=== PATIENT | male | born 1980 | race Caucasian/White ===

== ENCOUNTER 2024-05-28 12:29 | Emergency (ER) | payer MEDICAID, SELFPAY ==
[2024-05-28 12:37] VITALS: BP 134/86; PULSE 77; RESP 20; TEMP 37.1; O2SAT 97; BMI 22.6
--- NOTE | 2024-05-28 12:39 | ED_ITS ---
HPI - General Adult General Chief complaint: Abdominal Pain Stated complaint: black stool, abd pain Time Seen by Provider: 05/28/24 16:46 Source: patient Limitations: no limitations History of Present Illness ED Provider: Kath Guaman PA-C HPI narrative: 43-year-old male who is otherwise healthy presents with nausea vomiting x5 days. Associated cough and cold symptoms consisting of nasal congestion, dry cough, chills, subjective fevers at home. Patient began to have nausea vomiting within the past day, when he had a bowel movement today he noticed it to be black. He only had 1 episode. Patient states he is having ?tightness? in the epigastric region. Denies use of Pepto-Bismol. Denies sick contacts with the same symptoms. Related Data Previous Rx's ?Medication ?Instructions ?Recorded ondansetron HCl 4 mg tablet 4 mg PO Q8H PRN nausea and 05/28/24 vomiting #10 tabs sucralfate 100 mg/mL oral 10 ml PO QID PRN indigestion #300 05/28/24 suspension (Carafate) mL Allergies Allergy/AdvReac Type Severity Reaction Status Date / Time naproxen [NAPROXEN] Allergy Mild HIVES Verified 05/28/24 12:39 Review of Systems 2 Review of Systems: Yes all other systems are reviewed and are negative Constitutional: Constitutional: Reports chills, Reports fever(s) and Reports malaise ENT: Reports nasal congestion and Reports nasal discharge Cardiovascular: Cardiovascular: Denies chest pain and Denies dyspnea on exertion Respiratory: Respiratory: Reports cough and Denies dyspnea on exertion Gastrointestinal: Gastrointestinal: Reports abdominal pain, Reports melena, Denies diarrhea, Reports nausea and Reports vomiting PMFSH Past Medical History Attestation statement: The following information was validated with the patient. Social History Social History Smoked in Last 30 Days: Yes Use of substances other than those prescribed or required for medical reasons: Yes Substance Use Type: Marijuana Advance Directives: No Advance Directives Information Provided: Yes Physical Exam ED Vital Signs: Vital Signs - 24 hr 05/28/24 12:37 05/28/24 17:08 Temperature 98.8 F 98.7 F Pulse Rate 77 75 Respiratory Rate 20 16 Blood Pressure 134/86 135/80 Pulse Oximetry 97 100 Oxygen Delivery Method Room Air Room Air BMI result Body Mass Index 22.6 Const Other: Alert, overall well in appearance Orientation/consciousness: patient oriented x3 HENMT Other: Nasal congestion, rhinorrhea Resp Effort & Inspection: normal respiratory effort Cardio Other: Normal peripheral perfusion GI Other: Abdomen is soft, nontender nondistended Skin Other: Warm dry no rash Neuro General: patient oriented x3, no focal motor deficits and CN's II-XI intact bilaterally Psych Other: Calm cooperative Course Course Course Narrative: This is a rapid medical exam performed by Zulema Riddle NP: Additional HPI, ROS, PE not included below will be deferred to primary provider. Patient is a 43-year-old male presenting to the ED with complaint of black stool, periumbilical abdominal pain. States was seen at [facility] recently for similar symptoms but left due to wait time. Plan: labs, UA, viral swabs Reevaluation(s) Reevaluation #1: he feels remarkably better after the meds, he is eating drinking eager for discharge Time: 19:19 Medications Administered Discontinued Medications Generic Name Dose Route Start Last Admin Trade Name Freq PRN Reason Stop Dose Admin Famotidine 20 mg 05/28/24 17:21 05/28/24 17:38 Famotidine/Pf 20 Mg/2 Ml Vial IVPUSH 05/28/24 17:22 20 mg ONCE ONE Administration Sodium Chloride 1,000 mls @ 999 mls/hr 05/28/24 17:30 05/28/24 17:38 Ns IV 05/28/24 18:30 999 mls/hr .Q1H1M SAM Administration Ondansetron HCl 4 mg 05/28/24 17:21 05/28/24 17:38 Ondansetron Hcl 4 Mg/2 Ml Vial IVPUSH 05/28/24 17:22 4 mg ONCE ONE Administration Sucralfate 1 gm 05/28/24 17:21 05/28/24 17:38 Sucralfate Oral Suspension 1 Gm/10 Ml Oral.Susp PO 05/28/24 17:22 1 gm ONCE ONE Administration Medical Decision Making Medical Decision Making [facility] Narrative: 43-year-old male who is otherwise healthy presents with nausea vomiting x5 days. Associated cough and cold symptoms consisting of nasal congestion, dry cough, chills, subjective fevers at home. Patient began to have nausea vomiting within the past day, when he had a bowel movement today he noticed it to be black. He only had 1 episode. Patient states he is having ?tightness? in the epigastric region. Denies use of Pepto-Bismol. Denies sick contacts with the same symptoms. No chronic issues History: Per patient I have considered the following differential diagnoses: Upper GI bleed, lower GI bleed, gastritis, viral syndrome, Plan: Sounds as if patient has poorly controlled GERD, he only had 1 episode of dark stool, no active melena, he has not had any bowel movements since arrival. His abdominal exam is benign, nothing to suggest perforated viscus. He has no peritoneal signs. He can follow up as an outpatient for endoscopy and colonoscopy. We will be giving IV fluid famotidine Carafate and Zofran. This is all likely viral. He does not require imaging. Screening labs were screened obtained from triage. Including a viral Panel. I have independently reviewed the following tests: Labs: No leukocytosis, not anemic, no electrolyte abnormality, viral panel negative Lab Data 05/28/24 14:48 05/28/24 14:48 Labs: Lab Results 05/28/24 05/28/24 Range/Units 14:48 17:04 WBC 9.3 (4.8-10.8) X10*3/uL RBC 4.64 (4.60-5.80) X10*6/uL Hgb 13.7 L (14.0-18.0) g/dl Hct 39.4 L (42.0-52.0) % MCV 84.9 (80.0-98.0) fL MCH 29.5 (27.0-33.0) pg MCHC 34.8 (31.0-36.0) g/dl RDW 12.3 (11.0-16.0) % Plt Count 282 (160-400) X10*3/uL MPV 9.2 L (9.4-12.4) fL Immature Gran % (Auto) 0.2 (0.0-0.4) % Neut % (Auto) 61.3 (45-73) % Lymph % (Auto) 27.0 (20-40) % Bland % (Auto) 6.7 (2-11) % Eos % (Auto) 4.4 H (0-4) % Baso % (Auto) 0.4 (0-2) % Lymph # (Auto) 2.5 (1.2-4.9) X10*3/uL Bland # (Auto) 0.6 (0.1-1.2) X10*3/uL Eos # (Auto) 0.4 (0.0-0.4) X10*3/uL Baso # (Auto) 0.0 (0.0-0.2) X10*3/uL Abs Immat Gran (auto) 0.02 (0.00-0.03) X10*3/uL Absolute Neuts (auto) 5.7 (2.0-8.3) x10*3/uL Absolute Nucleated RBC 0.000 (0.0-0.012) X10*3/uL Nucleated RBC % (auto) 0.0 (0.0-0.2) /100WBC PT 12.4 (10.9-12.4) SEC INR 1.1 (0.9-1.1) Sodium 141 (135-145) mmol/L Potassium 4.1 (3.3-5.1) mmol/L Chloride 107 (96-108) mmol/L Carbon Dioxide 28 (22-29) mmol/L Anion Gap 10 L (12-20) BUN 11 (9-16) mg/dL Creatinine 0.82 (0.5-1.4) mg/dL Estim Creat Clear Calc 106.4 Estimated GFR > 60 Random Glucose 110 (60-115) mg/dL Calcium 9.5 (8.4-10.2) mg/dL Total Bilirubin 0.4 (0.0-1.0) mg/dL AST 23 (5-37) U/L ALT 14 (0-40) U/L Alkaline Phosphatase 62 (39-117) U/L Total Protein 7.6 (6.5-8.0) g/dL Albumin 4.4 (3.5-5.0) g/dL Urine Color Dark Yellow Urine Appearance Clear Urine pH 7.0 (5.0-9.0) Ur Specific [place] 1.025 (1.005-1.025) Urine Protein Trace (Neg-Trace) mg/dL Urine Glucose (UA) Negative (Negative) mg/dL Urine Ketones Trace (Negative) mg/dL Urine Blood Negative (Negative) Urine Nitrite Negative (Negative) Ur Leukocyte Esterase Trace H (Negative) Urine RBC 0-2 (0-2) /HPF Urine WBC 0-5 (0-5) /HPF Ur Squamous Epith Cells 0-2 (0-2) /HPF Urine Bacteria None Seen (None Seen) Hyaline Casts 3-5 (0-2) /LPF Urine Opiates Screen POSITIVE H (Not Detect) Ur Buprenorphine Scrn Not Detected (Not Detect) ng/mL Ur Oxycodone Screen Not Detected (Not Detect) ng/mL Urine Methadone Screen Not Detected (Not Detect) ng/mL Urine Fentanyl Screen POSITIVE H (Not Detect) Ur Barbiturates Screen Not Detected (Not Detect) Ur Phencyclidine Scrn Not Detected (Not Detect) Ur Amphetamines Screen Not Detected (Not Detect) U Benzodiazepines Scrn POSITIVE H (Not Detect) Urine Cocaine Screen Not Detected (Not Detect) U Marijuana (THC) Screen POSITIVE H (Not Detect) Ethyl Alcohol < 10 mg/dL Influenza Type A (PCR) NEGATIVE (Negative) Influenza Type B (PCR) NEGATIVE (Negative) RSV RNA Qual (PCR) NEGATIVE (Negative) SARS-CoV-2 RNA (RT-PCR) NEGATIVE (Negative) Discharge Plan Discharge Clinical Impression: Gastritis, Acute viral syndrome Patient Disposition: Home, Self-Care Instructions: Gastritis (ED), Diet for Stomach Ulcers and Gastritis (ED), Viral Syndrome (ED) Additional Instructions: You are being treated for likely viral gastritis. See home care instructions. Use the Zofran as needed for nausea, use the Carafate before meals, this will help coat your stomach. You need to follow up with your primary care provider to be referred to a director of epidemiology for endoscopy and colonoscopy. I would call to make an appointment. Prescriptions: New ondansetron HCl 4 mg tablet 4 mg PO Q8H PRN (Reason: nausea and vomiting) Qty: 10 0RF sucralfate [Carafate] 100 mg/mL suspension 10 ml PO QID PRN (Reason: indigestion) Qty: 300 0RF Rx Instructions: swish in mouth and swallow; use after food/drink Stand Alone Forms: Work/School Release Print Language: Samoan
[2024-05-28 14:53] LABS: MANUAL DIFF FLAG NO
[2024-05-28 14:54] LABS: Basophils Percent Auto 0.4 % (0-2); Eosinophils Absolute Auto 0.4 X10*3/uL (0.0-0.4); Eosinophils Percent Auto 4.4 % (0-4); Hematocrit 39.4 % (42.0-52.0); Hemoglobin 13.7 g/dl (14.0-18.0); Imm Gran Abs Auto 0.02 X10*3/uL (0.00-0.03); Imm Gran Pct Auto 0.2 % (0.0-0.4); Lymphocytes Absolute Auto 2.5 X10*3/uL (1.2-4.9); Mean Corpuscular HGB Conc 34.8 g/dl (31.0-36.0); Mean Corpuscular Hemoglobin 29.5 pg (27.0-33.0); Mean Corpuscular Volume 84.9 fL (80.0-98.0); Mean Platelet Volume 9.2 fL (9.4-12.4); Monocytes Absolute Auto 0.6 X10*3/uL (0.1-1.2); Monocytes Percent Auto 6.7 % (2-11); Neutrophils Absolute Auto 5.7 x10*3/uL (2.0-8.3); Neutrophils Percent Auto 61.3 % (45-73); Platelet Count 282 X10*3/uL (160-400); Red Blood Count 4.64 X10*6/uL (4.60-5.80); Red Cell Distribution Width 12.3 % (11.0-16.0); White Blood Count 9.3 X10*3/uL (4.8-10.8)
[2024-05-28 15:00] LABS: INTERNATIONAL NORM RATIO 1.1 (0.9-1.1); Prothrombin Time 12.4 SEC (10.9-12.4)
[2024-05-28 15:15] LABS: Alanine Aminotransferase 14 U/L (0-40); Albumin Level 4.4 g/dL (3.5-5.0); Alkaline Phosphatase 62 U/L (39-117); Anion Gap 10 (12-20); Aspartate Amino Transferase 23 U/L (5-37); Bilirubin Total 0.4 mg/dL (0.0-1.0); Blood Urea Nitrogen 11 mg/dL (9-16); Calcium 9.5 mg/dL (8.4-10.2); Carbon Dioxide 28 mmol/L (22-29); Chloride 107 mmol/L (96-108); Creatinine Clr Calc Pharmacy 106.4; Estimated Glomerular Filt Rate > 60; Ethanol < 10 mg/dL; Glucose Random 110 mg/dL (60-115); Potassium 4.1 mmol/L (3.3-5.1); Sodium 141 mmol/L (135-145); Total Protein 7.6 g/dL (6.5-8.0)
[2024-05-28 15:30] LABS: Influenza A PCR NEGATIVE (Negative); Influenza B PCR NEGATIVE (Negative); Resp Syncy Virus RNA Qual PCR NEGATIVE (Negative); SARS COV2 PCR INHOUSE NEGATIVE (Negative)
[2024-05-28 17:08] VITALS: BP 135/80; PULSE 75; RESP 16; TEMP 37.1; O2SAT 100
[2024-05-28 17:11] LABS: Appearance Urine Clear; Color Urine Dark Yellow; Glucose Urine UA Negative (Negative); Leukocyte Esterase Urine Trace (Negative); Nitrite Urine Negative (Negative); Specific Gravity - Urine 1.025 (1.005-1.025); UMIC TRIGGER UACC YES; Urine Blood Negative (Negative); Urine Ketones Trace mg/dL (Negative); Urine Protein Trace mg/dL (Neg-Trace)
[2024-05-28 17:21] LABS: Amphetamine Screen Urine Not Detected (Not Detect); Barbiturates, Urine Not Detected (Not Detect); Benzodiazepines Screen Urine POSITIVE (Not Detect); Buprenorphine Scr Not Detected (Not Detect); Cannabinoid Screen Urine POSITIVE (Not Detect); Cocaine Screen Urine Not Detected (Not Detect); Fentanyl, urine POSITIVE (Not Detect); Methadone Screen, Urine Not Detected (Not Detect); Opiate Screen Urine POSITIVE (Not Detect); Oxycodone Screen Urine Not Detected (Not Detect); Phencyclidine Screen Urine Not Detected (Not Detect)
[2024-05-28 17:25] LABS: Bacteria Urine None Seen (None Seen); Squamous Epithelial Cell Urine 0-2 /HPF (0-2); WBC Urine 0-5 /HPF (0-5)
[2024-05-28 17:26] LABS: RBC Urine 0-2 /HPF (0-2)
[2024-05-28] MEDS: Famotidine/PF 20 MG/2 ML VIAL IVPUSH (17:38)
[2024-05-28] MEDS: 0.9 % Sodium Chloride 1,000 ML 999 ML IV (17:38)
[2024-05-28] MEDS: Sucralfate Oral Suspension 1 GM/10 ML ORAL.SUSP PO (17:38)
[2024-05-28] MEDS: ondansetron HCL 4 MG/2 ML VIAL IVPUSH (17:38)
[2024-05-28 19:58] VITALS: BP 120/78; PULSE 68; RESP 16; TEMP 37; O2SAT 98
== END 2024-05-28 20:16 | disposition home or self-care (01) ==
PROVIDERS: Registered Nurse Emergency; Emergency Provider Internal Medicine
DX: R11.2 Nausea with vomiting, unspecified (principal); B34.9 Viral infection, unspecified; K29.70 Gastritis, unspecified, without bleeding; R09.81 Nasal congestion; R05.9 Cough, unspecified; R50.9 Fever, unspecified; Z51.81 Encounter for therapeutic drug level monitoring; Z03.818 Encounter for observation for suspected exposure to other biological agents ruled out; Z79.899 Other long term (current) drug therapy
CPT/HCPCS: 0241U; 80053; 80307; 81001; 85025; 85610; 96374; 96375; 99284; 99285; J2405